=== PATIENT | female | born 1985 | race Caucasian/White ===

== ENCOUNTER 2019-02-26 08:23 | Outpatient (CLI) | payer OTHER, BC ==
[2019-02-26 08:55] LABS: CLARITY,URINE SLIGHTLY CLOUDY (Clear); COLOR,URINE STRAW (Yellow); GLUCOSE, URINE NEGATIVE (Neg); KETONES,URINE NEGATIVE (Neg); LEUKOCYTE ESTERASE ,URINE NEGATIVE (Neg); NITRITES, URINE NEGATIVE (Neg); OCCULT BLOOD,URINE NEGATIVE (Neg); PH,URINE 5.5 (4.8-8.0); PROTEIN,URINE NEGATIVE (Neg); UROBILINOGEN,URINE 0.2 E.U/dL (0.2-1.0)
[2019-02-26 08:59] LABS: UA COLLECTION TYPE CLN CATCH MIDSTREAM
[2019-02-26 09:01] LABS: SQUAMOUS EPITHELIAL CELL,UR FEW /LPF (FEW)
[2019-02-26 09:02] LABS: BACTERIA,URINE FEW /HPF (Neg); RBC,URINE 0-2 /HPF (0-2); WBC,URINE 0-4 /HPF (0-4)
[2019-02-26 09:02] LABS: BASOPHILS % (AUTO) 0.2 % (0-1); EOSINOPHILS # (AUTO) 0.1 X10'3 (0-0.9); EOSINOPHILS % (AUTO) 0.9 % (0-6); HEMATOCRIT 38.7 % (35.0-45.0); HEMOGLOBIN 13.4 g/dl (12.0-16.0); LYMPHOCYTES # (AUTO) 2.6 X10'3 (1.1-4.8); LYMPHOCYTES % (AUTO) 31.1 % (21-51); MEAN CORPUSCULAR HEMOGLOBIN 29.6 PG (27.0-31.0); MEAN CORPUSCULAR HGB CONC 34.6 g/dL (33.0-36.5); MEAN CORPUSCULAR VOLUME 85.7 FL (78-98); MEAN PLATELET VOLUME 9.1 FL (7.4-10.4); MONOCYTES # (AUTO) 0.5 X10'3 (0-0.9); MONOCYTES % (AUTO) 5.6 % (2-12); NEUTROPHILS # (AUTO) 5.2 X10'3 (1.8-7.7); NEUTROPHILS % (AUTO) 62.2 % (42-75); PLATELET COUNT 241 X10'3 (140-440); RED BLOOD COUNT 4.52 X10'6 (4.20-5.60); RED CELL DISTRIBUTION WIDTH 13.1 % (11.5-14.5); WHITE BLOOD COUNT 8.3 X10'3 (4.5-11.0)
[2019-02-26 09:21] LABS: ALANINE AMINOTRANSFERASE 18 U/L (12-78); ALBUMIN/GLOBULIN RATIO 1.1 (1.1-1.5); ALKALINE PHOSPHATASE 61 IU/L (46-116); ANION GAP 8 (8-16); ASPARTATE AMINO TRANSFERASE 12 U/L (10-37); BILIRUBIN,TOTAL 0.4 MG/DL (0.1-1.0); BLOOD UREA NITROGEN 8 MG/DL (7-18); BUN/CREATININE RATIO 15.1 (6.6-38.0); CALCIUM 8.7 MG/DL (8.5-10.1); CHLORIDE 102 MMOL/L (99-107); CHOL/HDL RATIO 3.9 (0.00-4.99); CHOLESTEROL 172 MG/DL (0-200); CREATININE 0.53 MG/DL (0.40-0.90); GLUCOSE 88 MG/DL (70-104); HDL CHOLESTEROL 44 MG/DL (35-60); LDL CHOLESTEROL 120 MG/DL (50-100); POTASSIUM 3.6 MMOL/L (3.5-5.1); SODIUM 139 MMOL/L (135-145); TOTAL CARBON DIOXIDE 28.7 MMOL/L (24-32); TOTAL PROTEIN 7.7 G/DL (6.4-8.2); TRIGLYCERIDES 58 MG/DL (20-135); eGFR > 90 ML/MIN
== END 2019-02-26 23:59 | disposition home or self-care (01) ==
LOC: LAB 08:23
PROVIDERS: ATTEND Family Medicine
DX: G47.00 Insomnia, unspecified (principal); Z76.89 Persons encountering health services in other specified circumstances
CPT/HCPCS: 36415; 80053; 80061; 81001; 84439; 84443; 85025

== ENCOUNTER 2019-05-16 02:13 | Outpatient (CLI) | payer SELFPAY ==
[2019-05-16 08:39] LABS: HEMOGLOBIN A1C 5.3 % (4.5-6.2)
[2019-05-16 08:52] LABS: CHOL/HDL RATIO 4.37 (0.00-4.99)
== END 2019-05-16 23:59 | disposition home or self-care (01) ==
LOC: HW HEART 02:13
DX: Z13.6 Encounter for screening for cardiovascular disorders (principal)
CPT/HCPCS: 36415

== ENCOUNTER 2020-01-10 12:03 | Observation (INO) | payer BC ==
[~2020-01-10] VITALS: Ht 160 cm; Wt 93.5 kg
[2020-01-10] MEDS ORDERED: morphine 4 MG/ML inj SYRINge IV PRN (12:30)
[2020-01-10] MEDS ORDERED: normal saline 1000ML IV soln IVB ONE (12:30)
[2020-01-10] MEDS ORDERED: ondansetron/PF 4mg/2ml inj IV ONE (12:30)
[2020-01-10 12:46] LABS: CLARITY,URINE SLIGHTLY CLOUDY (Clear); COLOR,URINE STRAW (Yellow); GLUCOSE, URINE NEGATIVE (Neg); KETONES,URINE NEGATIVE (Neg); LEUKOCYTE ESTERASE ,URINE SMALL (Neg); NITRITES, URINE NEGATIVE (Neg); OCCULT BLOOD,URINE MODERATE (Neg); PH,URINE 5.5 (4.8-8.0); PROTEIN,URINE NEGATIVE (Neg); UROBILINOGEN,URINE 0.2 E.U/dL (0.2-1.0)
[2020-01-10 12:47] LABS: URINE HCG NEGATIVE (NEG)
[2020-01-10 12:48] LABS: UA COLLECTION TYPE NON-SPECIFIED
[2020-01-10 12:49] LABS: BASOPHILS % (AUTO) 0.4 % (0-1); EOSINOPHILS # (AUTO) 0.1 X10'3 (0-0.9); EOSINOPHILS % (AUTO) 0.8 % (0-6); HEMATOCRIT 37.9 % (35.0-45.0); HEMOGLOBIN 12.9 g/dl (12.0-16.0); LYMPHOCYTES # (AUTO) 2.6 X10'3 (1.1-4.8); LYMPHOCYTES % (AUTO) 25.2 % (21-51); MEAN CORPUSCULAR HEMOGLOBIN 28.7 PG (27.0-31.0); MEAN CORPUSCULAR VOLUME 84.6 FL (78-98); MEAN PLATELET VOLUME 8.9 FL (7.4-10.4); MONOCYTES # (AUTO) 0.6 X10'3 (0-0.9); MONOCYTES % (AUTO) 6.1 % (2-12); NEUTROPHILS % (AUTO) 67.5 % (42-75); PLATELET COUNT 265 X10'3 (140-440); RED BLOOD COUNT 4.48 X10'6 (4.20-5.60); RED CELL DISTRIBUTION WIDTH 13.5 % (11.5-14.5); WHITE BLOOD COUNT 10.3 X10'3 (4.5-11.0)
--- NOTE | 2020-01-10 12:54 | NUR ---
US IN ROOM
[2020-01-10 13:03] LABS: AMORPHOUS URATES 1+; BACTERIA,URINE FEW /HPF (Neg); SQUAMOUS EPITHELIAL CELL,UR FEW /LPF (FEW); WBC,URINE 0-4 /HPF (0-4)
[2020-01-10 13:06] LABS: ALANINE AMINOTRANSFERASE 18 U/L (12-78); ALBUMIN 4.1 G/DL (3.4-5.0); ALBUMIN/GLOBULIN RATIO 1.1 (1.1-1.5); ALKALINE PHOSPHATASE 57 IU/L (46-116); ANION GAP 8 (8-16); ASPARTATE AMINO TRANSFERASE 12 U/L (10-37); BILIRUBIN,TOTAL 0.3 MG/DL (0.1-1.0); BLOOD UREA NITROGEN 9 MG/DL (7-18); BUN/CREATININE RATIO 14.1 (6.6-38.0); CALCIUM 9.3 MG/DL (8.5-10.1); CHLORIDE 104 MMOL/L (99-107); CREATININE 0.64 MG/DL (0.40-0.90); GLUCOSE 94 MG/DL (70-104); LIPASE 119 U/L (73-393); POTASSIUM 3.4 MMOL/L (3.5-5.1); SODIUM 139 MMOL/L (135-145); TOTAL CARBON DIOXIDE 27.5 MMOL/L (24-32); TOTAL PROTEIN 7.9 G/DL (6.4-8.2); eGFR > 90 ML/MIN
[2020-01-10] MEDS ORDERED: morphine 4 MG/ML inj SYRINge IV ONE (14:35)
[2020-01-10] MEDS ORDERED: NO HOME MEDS (14:59)
[2020-01-10] MEDS ORDERED: acetaminophen 325mg tablet PO PRN (15:15)
[2020-01-10] MEDS ORDERED: ondansetron/PF 4mg/2ml inj IV PRN (15:15)
[2020-01-10] MEDS ORDERED: magnesium hydroxide 30ml (MOM) UD suspension PO PRN (15:15)
[2020-01-10] MEDS ORDERED: morphine 2 MG/ML inj. syringe IV PRN ×2 (15:15)
[2020-01-10] MEDS ORDERED: mag hydrox/Alum hydrox/simeth 30ml oral suspension PO PRN (15:15)
[2020-01-10] MEDS: normal saline 1000ml 1,000 ML IV SCH (16:10)
--- NOTE | 2020-01-10 16:10 | NUR ---
Report received from ED RNVeronika
--- NOTE | 2020-01-10 16:17 | NUR ---
report given to Patricia RN
[2020-01-10 16:20] VITALS: BP 156/99
[2020-01-10] MEDS ORDERED: magnesium 2GM in 50ml NS 50 ML IV PRN (16:45)
[2020-01-10] MEDS ORDERED: magnesium Cl slow-release 64mg tablet PO PRN (16:45)
[2020-01-10] MEDS ORDERED: potassium Cl 20 mEq SR tablet PO PRN (16:45)
[2020-01-10] MEDS ORDERED: potassium CL 10mEq/100ml bag 100 ML IV PRN (16:45)
[2020-01-10] MEDS ORDERED: magnesium 4gm in 100ml NS 100 ML IV PRN (16:45)
[2020-01-10] MEDS: potassium Cl 20 mEq SR tablet PO PRN ×2 (17:13→20:23)
[2020-01-10 18:00] VITALS: BP 134/68
--- NOTE | 2020-01-10 18:40 | NUR ---
Problems reprioritized. Patient report given, questions answered & plan of care reviewed with Nikole Agustin RN.
--- NOTE | 2020-01-10 18:45 | NUR ---
Patient in room [facility]. I have received report from REILLY ALEJO and had the opportunity to ask questions and assume patient care.
[2020-01-10] MEDS: K and/or MAG REPLACEMENT MC SCH (20:00)
[2020-01-11] VITALS (11 sets, daily range): BP systolic 104–131; BP diastolic 53–74
[2020-01-11] MEDS: normal saline 1000ml 1,000 ML IV SCH (01:46)
[2020-01-11 05:11] LABS: BASOPHILS % (AUTO) 0.1 % (0-1); EOSINOPHILS # (AUTO) 0.1 X10'3 (0-0.9); EOSINOPHILS % (AUTO) 1.3 % (0-6); HEMOGLOBIN 11.7 g/dl (12.0-16.0); LYMPHOCYTES # (AUTO) 2.2 X10'3 (1.1-4.8); MEAN CORPUSCULAR HEMOGLOBIN 29.5 PG (27.0-31.0); MEAN CORPUSCULAR HGB CONC 34.3 g/dL (33.0-36.5); MEAN CORPUSCULAR VOLUME 85.8 FL (78-98); MEAN PLATELET VOLUME 9.2 FL (7.4-10.4); MONOCYTES # (AUTO) 0.5 X10'3 (0-0.9); MONOCYTES % (AUTO) 6.2 % (2-12); NEUTROPHILS # (AUTO) 4.5 X10'3 (1.8-7.7); NEUTROPHILS % (AUTO) 62.4 % (42-75); PLATELET COUNT 220 X10'3 (140-440); RED BLOOD COUNT 3.96 X10'6 (4.20-5.60); RED CELL DISTRIBUTION WIDTH 13.1 % (11.5-14.5); WHITE BLOOD COUNT 7.3 X10'3 (4.5-11.0)
[2020-01-11 05:44] LABS: ALANINE AMINOTRANSFERASE 14 U/L (12-78); ALBUMIN 3.5 G/DL (3.4-5.0); ANION GAP 6 (8-16); ASPARTATE AMINO TRANSFERASE 10 U/L (10-37); BILIRUBIN,TOTAL 0.5 MG/DL (0.1-1.0); BLOOD UREA NITROGEN 9 MG/DL (7-18); BUN/CREATININE RATIO 15.5 (6.6-38.0); CALCIUM 8.3 MG/DL (8.5-10.1); CHLORIDE 107 MMOL/L (99-107); CREATININE 0.58 MG/DL (0.40-0.90); GLUCOSE 89 MG/DL (70-104); MAGNESIUM 2.1 MG/DL (1.5-2.4); POTASSIUM 3.8 MMOL/L (3.5-5.1); SODIUM 140 MMOL/L (135-145); TOTAL CARBON DIOXIDE 26.7 MMOL/L (24-32); TOTAL PROTEIN 6.9 G/DL (6.4-8.2); eGFR > 90 ML/MIN
[2020-01-11] MEDS ORDERED: INDOCYANINE GREEN 25 MG/10 ML VIAL IV ONE (06:00)
--- NOTE | 2020-01-11 06:30 | NUR ---
Problems reprioritized. Patient report given, questions answered & plan of care reviewed with SAADIA ALEJO.
[2020-01-11] MEDS ORDERED: LIDOcaine 1% 30ml preserv. free vial ONE (06:37)
[2020-01-11] MEDS ORDERED: BUPIVAcaine/PF 2.5 mg/ml (0.25%) 30ml vial ONE (06:37)
--- NOTE | 2020-01-11 06:39 | NUR ---
Patient in room [facility]. I have received report from Bouchra ALEJO and had the opportunity to ask questions and assume patient care.
[2020-01-11 06:41] LABS: ALKALINE PHOSPHATASE 49 IU/L (46-116)
[2020-01-11] MEDS ORDERED: cefazolin/dext.iso 2gm/50ml 50 ML IV ONE (07:00)
--- NOTE | 2020-01-11 07:06 | NUR ---
Preop antibiotic Cefazolin IV given to patient. Blood sugar checked 87 mg/dl.
[2020-01-11 07:15] LABS: PARTIAL THROMBOPLASTIN TIME 29 SECONDS (22-32)
[2020-01-11] MEDS ORDERED: ringers solution, lacted 1,000 ML IV SCH (07:41)
[2020-01-11] MEDS ORDERED: morphine 2 MG/ML inj. syringe IV PRN (07:45)
[2020-01-11] MEDS ORDERED: proCHLORperazine 10 MG/2 ml inj IV PRN (07:45)
[2020-01-11] MEDS ORDERED: meperidine/PF 25mg/ml syringe IV PRN ×3 (07:45)
[2020-01-11] MEDS ORDERED: morphine 4 MG/ML inj SYRINge IV PRN (07:45)
[2020-01-11] MEDS ORDERED: ondansetron/PF 4mg/2ml inj IV PRN (07:45)
--- NOTE | 2020-01-11 07:48 | NUR ---
Patient just left the room went to OR for surgery
[2020-01-11] MEDS ORDERED: propofol inj 20 ML IV ONE (07:57)
[2020-01-11] MEDS ORDERED: rocuronium 10mg/ml inj IV ONE (07:57)
[2020-01-11] MEDS ORDERED: fentaNYL/PF 50MCG/1 ML 2ML syringe ONE (07:57)
[2020-01-11] MEDS ORDERED: midazolam 2 mg/2 ml injection ONE (07:57)
[2020-01-11] MEDS: K and/or MAG REPLACEMENT MC SCH (08:00)
[2020-01-11] MEDS ORDERED: dexamethasone sod phosphate 4mg/ml inj. ONE (08:17)
[2020-01-11] MEDS ORDERED: ondansetron/PF 4mg/2ml inj ONE (09:12)
[2020-01-11] MEDS ORDERED: glycopyrrolate 0.2mg/ml inj ONE (09:13)
[2020-01-11] MEDS ORDERED: neostigmine methylsulfate 1 MG/ML 10ml vial ONE (09:13)
--- NOTE | 2020-01-11 09:28 | NUR ---
RECEIVED FROM OR VIA BED ACCOMPANIED BY ANESTHESIOLOGIST DR JIMENEZ, REPORT GIVEN. PT DROWSY BUT AROUSES WITH NO COMPLAINT OF PAIN AT THIS TIME. ABD SOFT WITH LG BANDAID DRESSINGS X 4 THAT ARE CDI. PPULSES PRESENT, GOOD CAP REFILL, VSS, PICKENS. 20 GAUGE PIV R FA PATENT AND RUNNING LR AT 100 ML/HR. SCDS APPLIED, RESTING COMFORTABLY.
[2020-01-11] MEDS ORDERED: HYDROcodone/acetaminophen 5mg/325mg tablet PO PRN (09:55)
--- NOTE | 2020-01-11 10:50 | NUR ---
TRANSFERRED VIA BED ACCOMPANIED BY MYSELF, REPORT GIVEN. PT AWAKE AND ALERT WITH COMPLAINT OF PAIN LEVEL OF 4 AT THIS TIME. ABD SOFT WITH LG BANDAID DRESSINGS X 4 THAT ARE CDI. PPULSES PRESENT, GOOD CAP REFILL, VSS, PICKENS. 20 GAUGE PIV R FA PATENT AND RUNNING LR AT 100 ML/HR. SCDS APPLIED, RESTING COMFORTABLY. LEFT IN CARE OF SURGICAL NURSE
--- NOTE | 2020-01-11 12:30 | NUR ---
Patient tolerated the clear liquid lunch served to her
[2020-01-11] MEDS ORDERED: HYDR-4383 PO (12:34)
[2020-01-11] MEDS ORDERED: ONDA4TAB12 PO (12:34)
--- NOTE | 2020-01-11 13:05 | NUR ---
A written prescription for [place] wrote by Dr. Miranda was found in the chart. I notified Dr. Larkin immediately about this, Dr. Larkin instructed me to shred the written prescription for [place] that he wrote as this will be a duplicate order. I shredded the [place] prescription that Dr. Larkin wrote and kept the [place] prescription wrote by Dr. Miranda.
--- NOTE | 2020-01-11 13:39 | NUR ---
Discharge instructions given to patient, patient verbalized understanding of all instructions made. Peripheral IV catheter removed, tip intact. Instructed patient to ensure she has all her belongings with her before leaving. Written prescription for [place] given to patient (stapled on the discharge folder(.
[2020-01-11] MEDS ORDERED: heparin, porcine 5000 units/ml vial SQ SCH (20:00)
== END 2020-01-11 14:01 | disposition home or self-care (01) ==
LOC: ER 12:03 → ED HOLD 15:12 → SUR 3N 16:33
PROVIDERS: ADMIT Family Medicine; ATTEND Family Medicine
DX: Z03.818 Encounter for observation for suspected exposure to other biological agents ruled out (principal); K80.70 Calculus of gallbladder and bile duct without cholecystitis without obstruction; I51.89 Other ill-defined heart diseases; E87.6 Hypokalemia; R11.0 Nausea; N13.30 Unspecified hydronephrosis; E66.9 Obesity, unspecified; Z88.0 Allergy status to penicillin; Z68.36 Body mass index [BMI] 36.0-36.9, adult
CPT/HCPCS: 36415; 47563; 74176; 76700; 80053; 81001; 81025; 82948; 83690; 83735; 85025; 85610; 85730; 87081; 87088; 87635; 93306; 96361; 96365; 96375; 96376; 99285; G0378; J1100; J2001; J2175; J2250; J2270; J2405; J2704; J2710; J3010; J3490; J7030; J7120; S2900; A4215; A4618; A7000

== ENCOUNTER 2020-08-10 11:57 | Outpatient (CLI) | payer BC ==
[~2020-08-10 11:57] MED LIST: ONDA4TAB12 PO
== END 2020-08-10 23:59 | disposition home or self-care (01) ==
LOC: CARD DIAG 11:57
PROVIDERS: ATTEND Nurse Practitioner Family
DX: I31.3 Pericardial effusion (noninflammatory) (principal); I31.8 Other specified diseases of pericardium
CPT/HCPCS: 93306

== ENCOUNTER 2021-08-19 08:28 | Outpatient (CLI) | payer BC ==
[2021-08-19 09:08] LABS: BASOPHILS % (AUTO) 0.2 % (0-1); EOSINOPHILS # (AUTO) 0.1 X10'3 (0-0.9); HEMATOCRIT 39.2 % (35.0-45.0); LYMPHOCYTES # (AUTO) 2.2 X10'3 (1.1-4.8); LYMPHOCYTES % (AUTO) 26.8 % (21-51); MEAN CORPUSCULAR HGB CONC 33.3 g/dL (33.0-36.5); MEAN CORPUSCULAR VOLUME 81.3 FL (78-98); MEAN PLATELET VOLUME 8.7 FL (7.4-10.4); MONOCYTES # (AUTO) 0.4 X10'3 (0-0.9); NEUTROPHILS # (AUTO) 5.6 X10'3 (1.8-7.7); PLATELET COUNT 277 X10'3 (140-440); RED BLOOD COUNT 4.82 X10'6 (4.20-5.60); RED CELL DISTRIBUTION WIDTH 14.9 % (11.5-14.5); WHITE BLOOD COUNT 8.4 X10'3 (4.5-11.0)
[2021-08-19 09:16] LABS: CLARITY,URINE CLEAR (Clear); COLOR,URINE YELLOW (Yellow); GLUCOSE, URINE NEGATIVE (Neg); KETONES,URINE NEGATIVE (Neg); LEUKOCYTE ESTERASE ,URINE NEGATIVE (Neg); NITRITES, URINE NEGATIVE (Neg); OCCULT BLOOD,URINE TRACE-INTACT (Neg); PH,URINE 6.5 (4.8-8.0); PROTEIN,URINE NEGATIVE (Neg); UROBILINOGEN,URINE 0.2 E.U/dL (0.2-1.0)
[2021-08-19 09:25] LABS: SQUAMOUS EPITHELIAL CELL,UR MODERATE /LPF (FEW); UA COLLECTION TYPE CLN CATCH MIDSTREAM
[2021-08-19 09:26] LABS: BACTERIA,URINE FEW /HPF (Neg); RBC,URINE 0-2 /HPF (0-2); WBC,URINE 0-4 /HPF (0-4)
[2021-08-19 09:49] LABS: ANION GAP 6 (8-16); BLOOD UREA NITROGEN 9 MG/DL (7-18); BUN/CREATININE RATIO 21.4 (6.6-38.0); CALCIUM 8.5 MG/DL (8.5-10.1); CHLORIDE 105 MMOL/L (99-107); CREATININE 0.42 MG/DL (0.40-0.90); GLUCOSE 101 MG/DL (70-104); POTASSIUM 3.8 MMOL/L (3.5-5.1); SODIUM 138 MMOL/L (135-145); TOTAL CARBON DIOXIDE 26.9 MMOL/L (24-32); eGFR > 90 ML/MIN
[2021-08-19 10:07] LABS: ALANINE AMINOTRANSFERASE 25 U/L (12-78); ALBUMIN 3.8 G/DL (3.4-5.0); ALKALINE PHOSPHATASE 65 IU/L (46-116); ASPARTATE AMINO TRANSFERASE 16 U/L (10-37); BILIRUBIN,TOTAL 0.3 MG/DL (0.1-1.0); CHOL/HDL RATIO 4.6 (0.00-4.99); CHOLESTEROL 183 MG/DL (0-200); HDL CHOLESTEROL 40 MG/DL (35-60); LDL CHOLESTEROL 124 MG/DL (50-100); TOTAL PROTEIN 7.6 G/DL (6.4-8.2); TRIGLYCERIDES 67 MG/DL (20-135)
== END 2021-08-19 23:59 | disposition home or self-care (01) ==
LOC: LAB 08:28
PROVIDERS: ATTEND Family Medicine
DX: I10 Essential (primary) hypertension (principal); E78.5 Hyperlipidemia, unspecified; E03.9 Hypothyroidism, unspecified; F41.8 Other specified anxiety disorders; R53.83 Other fatigue; Z68.36 Body mass index [BMI] 36.0-36.9, adult; Z00.01 Encounter for general adult medical examination with abnormal findings
CPT/HCPCS: 36415; 80053; 80061; 81001; 84439; 84443; 85025

== ENCOUNTER 2022-09-07 18:54 | Emergency (ER) | payer BC ==
[~2022-09-07] VITALS: Ht 160 cm; Wt 100.0 kg
[2022-09-07 19:07] VITALS: BP 160/85
[2022-09-07] MEDS ORDERED: ketorolac trometh. 30mg/ml inj. IM ONE (19:40)
[2022-09-07] MEDS ORDERED: HYDROcodone/acetaminophen 5mg/325mg tablet PO ONE (19:40)
== END 2022-09-07 20:46 | disposition home or self-care (01) ==
LOC: ER 18:54
DX: S93.691A Other sprain of right foot, initial encounter (principal); X50.1XXA Overexertion from prolonged static or awkward postures, initial encounter; Y93.89 Activity, other specified; Y92.89 Other specified places as the place of occurrence of the external cause; Y99.8 Other external cause status
CPT/HCPCS: 73600; 73630; 96372; 99284; J1885

== ENCOUNTER 2024-01-05 06:56 | Outpatient (CLI) | payer BC ==
[~2024-01-05 06:56] MED LIST changes: +ONDA-243 PO; -ONDA4TAB12 PO
[2024-01-05 11:50] LABS: BASOPHILS % (AUTO) 0.1 % (0-1); EOSINOPHILS # (AUTO) 0.1 X10'3 (0-0.9); EOSINOPHILS % (AUTO) 1.5 % (0-6); HEMATOCRIT 37.7 % (35.0-45.0); HEMOGLOBIN 12.8 g/dl (12.0-16.0); LYMPHOCYTES # (AUTO) 2.9 X10'3 (1.1-4.8); LYMPHOCYTES % (AUTO) 36.9 % (21-51); MEAN CORPUSCULAR HEMOGLOBIN 28.4 PG (27.0-31.0); MEAN CORPUSCULAR VOLUME 83.4 FL (78-98); MEAN PLATELET VOLUME 8.9 FL (7.4-10.4); MONOCYTES # (AUTO) 0.5 X10'3 (0-0.9); NEUTROPHILS # (AUTO) 4.4 X10'3 (1.8-7.7); NEUTROPHILS % (AUTO) 55.5 % (42-75); PLATELET COUNT 258 X10'3 (140-440); RED BLOOD COUNT 4.52 X10'6 (4.20-5.60); RED CELL DISTRIBUTION WIDTH 14.2 % (11.5-14.5); WHITE BLOOD COUNT 7.9 X10'3 (4.5-11.0)
[2024-01-05 12:10] LABS: ALANINE AMINOTRANSFERASE 16 U/L (12-78); ALBUMIN 3.6 G/DL (3.4-5.0); ALBUMIN/GLOBULIN RATIO 0.9 (1.1-1.5); ALKALINE PHOSPHATASE 71 IU/L (46-116); ANION GAP 6 (8-16); ASPARTATE AMINO TRANSFERASE 11 U/L (10-37); BILIRUBIN,TOTAL 0.3 MG/DL (0.1-1.0); BLOOD UREA NITROGEN 8 MG/DL (7-18); BUN/CREATININE RATIO 13.1 (10.0-20.0); CALCIUM 8.9 MG/DL (8.5-10.1); CHLORIDE 103 MMOL/L (99-107); CREATININE 0.61 MG/DL (0.40-0.90); FREE T4 (FREE THYROXINE) 0.98 NG/DL (0.73-1.40); GLUCOSE 87 MG/DL (70-104); POTASSIUM 3.7 MMOL/L (3.5-5.1); SODIUM 139 MMOL/L (135-145); THYROID STIMULATING HORMONE 1.12 ulU/ml (0.34-4.50); TOTAL CARBON DIOXIDE 30.3 MMOL/L (24-32); TOTAL PROTEIN 7.4 G/DL (6.4-8.2); eGFR > 90 ML/MIN
[2024-01-05 12:14] LABS: HEMOGLOBIN A1C 5.2 % (4.5-6.2)
[2024-01-08 12:38] LABS: PROGESTERONE 0.1 ng/mL (.); TESTOSTERONE, SERUM 18 ng/dL (8-60)
[2024-01-10 10:34] LABS: TESTOSTERONE, FREE, DIRECT 2.3 pg/mL (0.0-4.2)
== END 2024-01-05 23:59 | disposition home or self-care (01) ==
LOC: LAB 06:56
PROVIDERS: ATTEND Nurse Practitioner
DX: Z13.220 Encounter for screening for lipoid disorders (principal); R53.83 Other fatigue; E34.9 Endocrine disorder, unspecified; F43.9 Reaction to severe stress, unspecified
CPT/HCPCS: 36415; 80053; 82672; 83036; 84144; 84402; 84403; 84439; 84443; 85025